=== PATIENT | male | born 1970 | race Caucasian/White ===

== ENCOUNTER 2025-01-17 18:18 | Emergency (ER) | payer MEDICAID ==
[~2025-01-17] VITALS: Ht 193 cm; Wt 127.2 kg
--- NOTE | 2025-01-17 18:26 | Physician Documentation ---
History of Present Illness Stated Complaint: MED REQ Time Seen by MD: 18:23 HPI MSE: Patient is a 54-year-old male who presents to emergency department for evaluation of left lower extremity edema times several days patient reports that he has a history of DVT in that leg but has currently been out of his Eliquis x2 months. Medication Reconciliation Allergies: Coded Allergies: No Known Allergies (Unverified , 01/17/25) Scheduled Apixaban (Eliquis), 1 TAB PO Q12H Review of Systems ROS As stated above in the HPI, otherwise all systems are reviewed and negative. Constitutional: Reports: no symptoms reported, see HPI, chills, diaphoresis, fever, malaise, weakness, other Physical Exam Physical Exam VITALS: Reviewed and as above. GENERAL: Alert, no apparent distress. HEENT: Normocephalic, atraumatic, PERRL, EOMI, dry mucosa, no erythema RESPIRATORY: Lungs clear, normal breath sounds, no respiratory distress. CHEST: No accessory muscle use, no retractions CV: Regular rate, rhythm, no edema, no murmur, No: JVD GI: Soft, non-tender, bowels sounds present, no rebound, guarding, or rigidity BACK: No CVA tenderness, or swelling MUSCULOSKELETAL No deformities, no edema, edema to the low left extremity. SKIN: Warm and dry, no rash NEURO: Oriented x4, No motor or sensory deficit PSYCH: Normal mood and affect, no agitation Progress Results/Orders Results/Orders Orders - LULY CARDOZA Vl Arterial (01/17/25 18:23) Vl Venous (01/17/25 18:23) Medical Decision Making Findings This patient presents with initial presentation of local erythema, warmth, swelling concerning for acute on chronic DVT. Sensitivity/pain to light touch around the erythematous area. No lymphangitic spread visible and no fluid pockets or fluctuance concerning for abscess noted. Exam and imaging high suspicion for he is on chronic DVT. No immune compromise, bullae, pain out of proportion, or rapid progression concerning for necrotizing fasciitis. This case with my attending due to the patient having been diagnosed with a DVT four months ago and stabbing taking his Eliquis two months ago recommendation at this time as he restart the patient's Eliquis send him home with strict return pr ecautions. Follow up with his primary care provider. Patient will return to the emergency depart with any worsening of his current symptoms or any additional concerning symptoms we discussed here today i.e. shortness for breath chest pain increased leg swelling increased pain in the leg fevers chills or any other concerning symptoms. Differential Dx:Considerations: Include: AAA, Angina/NM, Aortic dissection, Appendicitis, Bowel obstruction, Cholangitis, Cholelithasis, Constipation, D iverticular disease, Esophageal rupture, Esophagitis, Gastritis/PUD, Gastroenteritis, GI hemorrhage, Hernia, Hepatitis, Inflammatory BD, Ischemic bowel, Pancreatitis, Porphyria, Testicular torsion, Trauma, intraabdominal, Urinary obstruction, Urinary tract infection, Urolithiasis, Other Departure Disposition: 01 HOME / SELF CARE / HOMELESS Impression: Primary Impression: Edema of lower extremity Additional Impressions: DVT (deep venous thrombosis) Chronic deep vein thrombosis (DVT) Condition: Stable Discharge Instructions: Deep Skin Avulsion Additional Instructions: This patient presents with initial presentation of local erythema, warmth, swelling concerning for acute on chronic DVT. Sensitivity/pain to light touch around the erythematous area. No lymphangitic spread visible and no fluid pockets or fluctuance concerning for abscess noted. Exam and imaging high suspicion for he is on chronic DVT. No immune compromise, bullae, pain out of proportion, or rapid progression concerning for necrotizing fasciitis. This case with my attending due to the patient having been diagnosed with a DVT four months ago and stabbing taking his Eliquis two months ago recommendation at this time as he restart the patient's Eliquis send him home with strict return precautions. Follow up with his primary care provider. Patient will return to the emergency depart with any worsening of his current symptoms or any additional concerning symptoms we discussed here today i.e. shortness for breath chest pain increased leg swelling increased pain in the leg fevers chills or any other concerning symptoms. Please take your Eliquis as follows 10 mg by mouth twice daily for seven days followed by 5 mg by mouth twice daily x3 months. Please follow up with the primary care provider. Return to the emergency department with her any worsening or recurrent symptoms or any additional concerning symptoms we discussed here today. Referrals: NO PRIMARY CARE PROVIDER (PCP) Prescriptions Apixaban (ELIQUIS) 5 Mg Tablet 1 TAB PO Q12H for 30 Days, #60 TAB 0 Refills Prov: LULY CARDOZA 01/17/25 Education Educated: Patient Educated regarding: diagnosis, treatment, need for follow up Signature Scribe Signature: A Attestation: Scribed for Luly Cardoza by MAAN Mims . 01/17/25 21:13 LULY CARDOZA Jan 17, 2025 18:26
[2025-01-17 18:43] LABS: MEAN PLATELET VOLUME 8.4 FL (7.4-10.4); RED CELL DISTRIBUTION WIDTH 14.0 % (11.5-14.5)
[2025-01-17 19:00] LABS: CREATININE 1.17 MG/DL (0.60-1.10); TOTAL CARBON DIOXIDE 28.8 MMOL/L (24-32); eCRCL 89 ML/MIN; eGFR 65 ML/MIN
[2025-01-17 19:15] LABS: APTT 28 SECONDS (22-32)
--- NOTE | 2025-01-17 20:42 | VASCULAR REPORT ---
Right lower extremity venous duplex Clinical History: History of DVT 4 months ago, stopped medication 2 months ago; long driving, swelling Comparison: None Technique: Duplex Doppler evaluation of the deep venous system of the right lower extremity from the common femoral vein to the popliteal vein including color Doppler and spectral/pulsed waveform analysis was performed. Findings: The common femoral vein demonstrates appropriate compressibility and waveform variability. The greater saphenous vein is incompletely compressible in the thigh and calf. The femoral vein demonstrates appropriate compressibility and waveform variability. The deep femoral vein demonstrates appropriate compressibility and waveform variability. The popliteal vein demonstrates appropriate compressibility and waveform variability. There is normal compressibility at the tibioperoneal trunk. Subcutaneous edema below the knee. Impression: 1. Incompletely occlusive thrombus within the left greater saphenous vein in the thigh and calf, favored chronic. 2. No other right femoropopliteal venous thrombosis. I communicated the above findings with Dr. Fine by telephone at 8:39 p.m. [facility] on 01/17/2025, who communicated understanding and provided additional history.
--- NOTE | 2025-01-17 20:57 | VASCULAR REPORT ---
Left Lower Extremity Arterial Duplex Clinical History: Left leg pain Comparison: None Technique: Duplex Doppler evaluation including color Doppler and spectral/pulsed waveform analysis of the lower extremity arteries was performed. Findings: Peak systolic velocities are as follows: [employer] 118 cm/s Deep femoral 66 cm/s SFA proximal 118 cm/s SFA mid-portion 107 cm/s SFA distal 94 cm/s Popliteal 104 cm/s Posterior tibial 94 cm/s Anterior tibial 86 cm/s Peroneal 65 cm/s The waveforms are triphasic. Mild spectral broadening [id number]. IMPRESSION: No hemodynamically significant stenosis within the left leg.
[2025-01-17] MEDS ORDERED: APIX5TAB3 PO (21:10)
[2025-01-17 21:58] VITALS: BP 145/91; PULSE 82; RESP 16; TEMP 98; O2SAT 99
== END 2025-01-17 22:06 | disposition home or self-care (01) ==
LOC: ER 18:19
DX: I82.5Z2 Chronic embolism and thrombosis of unspecified deep veins of left distal lower extremity (principal); R60.0 Localized edema; Z79.01 Long term (current) use of anticoagulants
CPT/HCPCS: 36415; 80053; 85025; 85730; 93926; 93971; 99284